=== PATIENT | female | born 1960 | race Caucasian/White ===

== ENCOUNTER 2019-02-26 18:30 | Emergency (ER) | payer MEDICAID ==
--- NOTE | 2019-02-26 20:14 | EDM.PDOC ---
ED HPI GENERAL MEDICAL PROBLEM - General Chief Complaint: Gastrointestinal Problem Stated Complaint: CONSTIPATION Time Seen by Provider: 02/26/19 19:05 Source of Information: Reports: Patient History Limitations: Reports: No Limitations - History of Present Illness INITIAL COMMENTS - FREE TEXT/NARRATIVE: 58-year-old female who reports history of chronic constipation and reports that she had a hard stool this morning and since that time has been unable to pass any further stool, yet feels the need to have a bowel movement and has been having intermittent sharp and cramping perianal when she tries to have a bowel movement. She reports the pain is a 10/10 at this point and she is actually quite diaphoretic when she is to have a bowel movement secondary to the pain and straining. She has no abdominal pain associated with this. She's had no nausea or vomiting. She has been able to eat and drink normally. She is having no problems with urination. She reports that she has taken her Senokot, milk of magnesia and a dose of MiraLAX today without relief. There are no other associated signs or symptoms. There are no other modifying factors. Onset: Today Duration: Getting Worse, Intermittent Location: Reports: Other (Perianal area) Quality: Reports: Sharp, Other (Cramping) Severity: Moderate (to severe) Improves with: Reports: None Worsens with: Reports: Other (When attempting to have bowel movement) Context: Reports: Other (As above) Associated Symptoms: Reports: Diaphoresis Treatments HORSESHOER: Reports: Other (see below) (As above) abd pain and rectal Pain Score (Numeric/FACES): 10 - Related Data Allergies Allergy/AdvReac Type Severity Reaction Status Date / Time celecoxib [From Celebrex] Allergy Cannot Verified 02/26/19 19:23 Remember Penicillins Allergy Cannot Verified 02/26/19 19:23 Remember Sulfa (Sulfonamide Allergy Cannot Verified 02/26/19 19:23 Antibiotics) Remember Past Medical History Cardiovascular History: Reports: High Cholesterol, Hypertension Gastrointestinal History: Reports: Chronic Constipation Psychiatric History: Reports: Anxiety, Depression Endocrine/Metabolic History: Reports: Diabetes, Type II - Past Surgical History Female Surgical History: Reports: Hysterectomy Neurological Surgical History: Reports: Lumbar Spine Musculoskeletal Surgical History: Reports: Knee Replacement (Left total knee replacement with multiple knee surgeries prior to this.), Other (See Below) ( Right foot surgery) Social & Family History - Family History Family Medical History: Noncontributory - Tobacco Use Smoking Status *Q: Never Smoker - Alcohol Use Alcohol Use History: No ED ROS GENERAL - Review of Systems Review Of Systems: See Below Constitutional: Reports: Diaphoresis HEENT: Reports: No Symptoms Respiratory: Reports: No Symptoms Cardiovascular: Reports: No Symptoms GI/Abdominal: Reports: Constipation, Other (Perianal pain with hard stools) : Reports: No Symptoms Musculoskeletal: Reports: No Symptoms Skin: Reports: Diaphoresis Neurological: Reports: No Symptoms Hematologic/Lymphatic: Reports: No Symptoms Immunologic: Reports: No Symptoms ED EXAM, GENERAL - Physical Exam Exam: See Below Exam Limited By: No Limitations General Appearance: Alert, WD/WN, No Apparent Distress Eye Exam: Bilateral Eye: EOMI, Normal Inspection, PERRL Ears: Normal External Exam Ear Exam: Bilateral Ear: Auricle Normal Nose: Normal Inspection, Normal Mucosa, No Blood Throat/Mouth: Normal Inspection, Normal Oropharynx, Normal Voice, No Airway Compromise Head: Atraumatic, Normocephalic Neck: Normal Inspection, Supple, Non-Tender, Full Range of Motion Respiratory/Chest: No Respiratory Distress, Lungs Clear, Normal Breath Sounds, No Accessory Muscle Use, Chest Non-Tender Cardiovascular: Normal Peripheral Pulses, Regular Rate, Rhythm, No JVD Peripheral Pulses: 2+: Radial (L), Radial (R) GI/Abdominal: Normal Bowel Sounds, Soft, Non-Tender, No Organomegaly, No Mass Back Exam: Normal Inspection Extremities: Normal Inspection (Brace on left lower extremity), Normal Range of Motion, Non-Tender, Normal Capillary Refill Neurological: Alert, Oriented, CN II-XII Intact, No Motor/Sensory Deficits Skin Exam: Warm, Intact, Normal Color, No Rash, Diaphoretic Course - Vital Signs Last Recorded V/S: Last Vital Signs Temp 36.5 C 02/26/19 18:30 Pulse 94 02/26/19 18:30 Resp 18 02/26/19 18:30 BP 123/70 02/26/19 18:30 Pulse Ox 99 02/26/19 18:30 - Orders/Labs/Meds Orders: Active Orders 24 hr Category Date Time Status Enema [RC] ASDIRECTED Care 02/26/19 19:23 Active - Re-Assessments/Exams Free Text/Narrative Re-Assessment/Exam: 02/26/19 20:11: Patient given soapsuds enema and tolerated well. She had urge results at bowel movement and felt markedly improved following this. This seemed to completely relieve her symptoms. She is ready for discharge at this point. Departure - Departure Time of Disposition: 20:15 Disposition: Home, Self-Care 01 Condition: Good (Improved) Clinical Impression: Constipation, Fecal impaction in rectum - Discharge Information Instructions: Constipation, Adult, [id number] Referrals: Bertrand Coley MD [Primary Care Provider] - Forms: ED Department Discharge Additional Instructions: You appear to have a fecal impaction which was cleared with the enema that you were given in the emergency department. In the future, if you begin to feel constipated, you should take MiraLAX one dose up to 3 times a day until you have good results a bowel movement and that he may go back to your regular regimen for constipation. Increase your fluid intake. Follow-up with your primary doctor as needed. Back to the emergency department for vomiting, abdominal pain or any other concerning sign or symptom. - My Orders Last 24 Hours: My Active Orders 02/26/19 19:23 Enema [RC] ASDIRECTED - Assessment/Plan Last 24 Hours: My Active Orders 02/26/19 19:23 Enema [RC] ASDIRECTED
== END 2019-02-26 20:20 | disposition home or self-care (01) ==
LOC: FB.ED 18:30
DX: K59.00 Constipation, unspecified (principal); E78.00 Pure hypercholesterolemia, unspecified; I10 Essential (primary) hypertension; F41.9 Anxiety disorder, unspecified; F32.9 Major depressive disorder, single episode, unspecified; E11.9 Type 2 diabetes mellitus without complications; Z88.8 Allergy status to other drugs, medicaments and biological substances; Z88.2 Allergy status to sulfonamides
CPT/HCPCS: 99283